=== PATIENT | male | born 1965 | race African-American/Black ===

== ENCOUNTER 2020-12-16 21:08 | Emergency (ER) | payer OTHER ==
[~2020-12-16] VITALS: Ht 165.1 cm; Wt 79.4 kg
[2020-12-17 01:32] VITALS: BP 119/81
== END 2020-12-17 01:42 | disposition home or self-care (01) ==
LOC: ER 21:08 → EDBD 21:08 → ER 12-17 01:42
DX: T78.02XA Anaphylactic reaction due to shellfish (crustaceans), initial encounter (principal); J45.909 Unspecified asthma, uncomplicated